=== PATIENT | female | born 1955 | race Caucasian/White ===

== ENCOUNTER 2017-06-19 23:33 | Emergency (ER) | payer MEDICAID ==
[2017-06-19] MEDS ORDERED: methylPREDNISolone Sodium Succinate 125 MG/2 ML SDV IVPUSH ONE (23:40)
[2017-06-20 00:22] LABS: ANION GAP 11.7; CHLORIDE,CL 92 mmol/L (101-111); SODIUM,NA 128 mmol/L (135-145)
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
[2017-06-20 01:30] VITALS: BP 150/84
--- NOTE | 2017-06-22 09:03 | EKG ---
06/19/2017- ADDIS VALERIE REDDYDONNAANGELA - FINDINGS: A 12-lead EKG shows normal sinus rhythm with no significant ST elevation or ST depression. Nonspecific ST-T wave changes noted on lead V4, V5, and V6 with T-wave inversions possible left ventricular hypertrophy and nonspecific intraventricular conduction delay. [facility] /[id number]
== END 2017-06-20 01:25 | disposition home or self-care (01) ==
LOC: DL.ED 23:33
DX: J44.1 Chronic obstructive pulmonary disease with (acute) exacerbation (principal); I50.9 Heart failure, unspecified; E78.00 Pure hypercholesterolemia, unspecified; F17.210 Nicotine dependence, cigarettes, uncomplicated; Z88.5 Allergy status to narcotic agent; Z88.1 Allergy status to other antibiotic agents; Z79.82 Long term (current) use of aspirin; Z79.899 Other long term (current) drug therapy
CPT/HCPCS: 36415; 71045; 80053; 84484; 85025; 93005; 96374; 99285; J2930

== ENCOUNTER 2017-09-08 16:35 | Emergency (ER) | payer MEDICAID ==
[2017-09-08 16:26] VITALS: BP 128/92
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
[2017-09-08] MEDS ORDERED: Mineral Oil/Petrolatum/Phenylephrine/Shark Liver Oil Oint 57 GM Tube RECTAL ONE ×2 (17:30→18:01)
[2017-09-08] MEDS ORDERED: Lidocaine 2% Jelly 5 ML Tube TOP ONE (17:48)
[2017-09-08] MEDS ORDERED: Phenylephrine Supp ONE (18:01)
== END 2017-09-08 18:13 | disposition home or self-care (01) ==
LOC: DL.ED 16:35
DX: K64.4 Residual hemorrhoidal skin tags (principal); J44.9 Chronic obstructive pulmonary disease, unspecified; J45.909 Unspecified asthma, uncomplicated; E66.9 Obesity, unspecified; F17.210 Nicotine dependence, cigarettes, uncomplicated; Z85.038 Personal history of other malignant neoplasm of large intestine; Z88.5 Allergy status to narcotic agent; Z88.8 Allergy status to other drugs, medicaments and biological substances; Z79.82 Long term (current) use of aspirin; Z79.899 Other long term (current) drug therapy
CPT/HCPCS: 74018; 80305; 81003; 82272; 99284

== ENCOUNTER 2017-10-11 06:32 | Day surgery (SDC) | payer MEDICAID ==
[2017-10-11] MEDS ORDERED: Dextrose 5%-0.45% NaCl 1,000 ML IV SCH (06:55)
[2017-10-11] MEDS ORDERED: Midazolam 1 MG/ML 2 ML SDV ONE (08:24)
[2017-10-11] MEDS ORDERED: fentaNYL 100 MCG/2 ML SDV ONE (08:24)
[2017-10-11] MEDS ORDERED: fentaNYL 100 MCG/2 ML SDV IV ONE ×2 (08:27→08:28)
[2017-10-11] MEDS ORDERED: Midazolam 1 MG/ML 2 ML SDV IV ONE ×3 (08:29→08:32)
--- NOTE | 2017-10-11 09:56 | OR ---
DATE: 10/11/2017 PROCEDURES PERFORMED: Total colonoscopy, NBI, and multiple cold snare polypectomies. INSTRUMENT USED: CF-H180AL Olympus videocolonoscope. PREMEDICATIONS: Fentanyl 100 mcg intravenous and Versed 2.5 mg intravenous. Nasal O2 cannula. The procedure was done under pulse oximetry, BP recording, and potline monitor. INDICATIONS: The patient with previous sigmoid colon cancer resection with recent rectal bleeding and FIT-positive stools. Colonoscopic examination is done for detection of any polypoid lesions and removal, endoscopic hemostasis therapy if needed. DESCRIPTION OF PROCEDURE: Initial rectal exam showed external hemorrhoidal tags. Rigid anoscopy showed small internal hemorrhoids without bleeding from them. The colonoscope was passed with ease. Scattered diverticula were noted in the distal left colon along with surgical deformity. The examination was less than adequate due to the presence of large amount of fecal material that had to be aspirated. The scope was passed with ease up to the ileocecal area, photographs were taken of the cecum showing superficial sessile benign-appearing 1 cm sized polyps, 2 in number, NBI views were taken, photographs were obtained, piecemeal polypectomies were done, the tissues were retrieved and sent for histopathology, photographs were taken of the polypectomy sites. No stricture. No vascular ectasia. No large isolated ulcerations seen. No evidence of diffuse inflammatory bowel disease in the form of friability, contact bleeding, or ulcerations. Pigmentation was noted in the colon consistent with melanosis coli. Probing the proximal sides of folds and flexures, using adequate distention and clearing of the stool material, withdrawal of the scope was made. In the proximal transverse colon, a 3 mm sized benign-appearing polyp was noted, cold snare polypectomy was done, the tissue was retrieved and sent for histopathology. No bleeding was noted from any of the visualized areas at the completion of the examination. IMPRESSION: 1. External and internal hemorrhoids. 2. Melanosis coli. 3. Diverticulosis. 4. Colonic polyps. The patient tolerated the procedure well. [facility] /[id number]
[2017-10-11 10:53] VITALS: BP 145/70
== END 2017-10-11 11:05 | disposition home or self-care (01) ==
LOC: DL.ENDO 06:32
PROVIDERS: ATTEND Internal Medicine Gastroenterology
DX: K62.5 Hemorrhage of anus and rectum (principal); R19.5 Other fecal abnormalities; D12.3 Benign neoplasm of transverse colon; D12.0 Benign neoplasm of cecum; K57.30 Diverticulosis of large intestine without perforation or abscess without bleeding; K64.8 Other hemorrhoids; K64.4 Residual hemorrhoidal skin tags; K63.89 Other specified diseases of intestine; I11.0 Hypertensive heart disease with heart failure; I50.9 Heart failure, unspecified; E66.09 Other obesity due to excess calories; F17.200 Nicotine dependence, unspecified, uncomplicated; E78.5 Hyperlipidemia, unspecified; I25.10 Atherosclerotic heart disease of native coronary artery without angina pectoris; G47.33 Obstructive sleep apnea (adult) (pediatric); Z85.038 Personal history of other malignant neoplasm of large intestine; Z88.5 Allergy status to narcotic agent; Z88.1 Allergy status to other antibiotic agents; Z90.49 Acquired absence of other specified parts of digestive tract; Z79.899 Other long term (current) drug therapy; Z91.048 Other nonmedicinal substance allergy status
CPT/HCPCS: J2250; J3010; J7042

== ENCOUNTER 2017-11-01 06:37 | Day surgery (SDC) | payer MEDICAID ==
[2017-11-01] MEDS ORDERED: Midazolam 1 MG/ML 2 ML SDV IV ONE (06:38)
[2017-11-01] MEDS ORDERED: Ondansetron 4 MG/2 ML SDV IV ONE (06:38)
[2017-11-01] MEDS ORDERED: Lidocaine 1% 30 ML SDV INJECT ONE ×4 (06:38→09:30)
[2017-11-01] MEDS ORDERED: Propofol 1,000 MG/100 ML SDV IV ONE (06:38)
[2017-11-01] MEDS ORDERED: fentaNYL 100 MCG/2 ML SDV IV ONE (06:38)
[2017-11-01] MEDS ORDERED: Bupivacaine 0.5% 30 ML SDV INJECT ONE ×4 (06:38→09:30)
[2017-11-01] MEDS ORDERED: Ketorolac 30 MG/ML SDV IVPUSH ONE (06:38)
[2017-11-01] MEDS ORDERED: Bupivacaine 0.5% 30 ML SDV ONE (07:05)
[2017-11-01] MEDS ORDERED: Lidocaine 1% 30 ML SDV ONE (07:05)
[2017-11-01] MEDS ORDERED: Sodium Chloride 0.9% 10 ML Syringe FLUSH PRN ×2 (07:51)
[2017-11-01] MEDS ORDERED: ceFAZolin 2 GM in Premix Bag 1 BAG IV ONE (07:52)
[2017-11-01] MEDS ORDERED: Lactated Ringers 1,000 ML IV SCH (08:00)
[2017-11-01] MEDS ORDERED: Acetaminophen/oxyCODONE 325-5 MG Tab PO PRN (10:08)
[2017-11-01] MEDS ORDERED: Albuterol/Ipratropium 3.0-0.5 MG/3 ML Neb Soln NEB ONE (10:17)
[2017-11-01] MEDS ORDERED: Albuterol 0.083% 2.5 MG/3 ML Neb Soln ONE (10:26)
[2017-11-01 11:15] VITALS: BP 135/71
--- NOTE | 2017-11-01 11:48 | PCM.OPNOTE ---
- General Post-Op/Procedure Note Date of Surgery/Procedure: 11/01/17 Operative Procedure(s): left foot 2nd and 3rd hammertoe corrections with PIPJ arthrodesis, extensor tendon lengthening digits 2,3,4. Plantar chondylectomy metatarsal 3. Flexor tenotomy digit 4. Pre Op Diagnosis: Left foot painful hammertoes digits 2,3,4. 3rd metatarsalgia with painful callus plantar met head. Post-Op Diagnosis: svetlana Anesthesia Technique: Local, MAC Primary Surgeon: Maya Melvin Anesthesia Provider: Jean Blandon EBL in mLs: 5 Complications: none Condition: Good Free Text/Narrative:: Pt tolerated procedure well and was transported to recovery with vascular status intact to left foot. smart toe implats used on digits 2 and 3. Well padded compression dressing applied.
--- NOTE | 2017-11-01 19:39 | OR ---
DATE: 11/01/2017 PREOPERATIVE DIAGNOSES: 1. Left foot third metatarsalgia with painful callus. 2. Left foot painful hammertoes; digits 2, 3, and 4. POSTOPERATIVE DIAGNOSES: 1. Left foot third metatarsalgia with painful callus. 2. Left foot painful hammertoes; digits 2, 3, and 4. PROCEDURES PERFORMED: 1. Left foot third metatarsal plantar condylectomy. 2. Left foot second and third digit hammertoe correction with proximal interphalangeal joint arthrodesis. 3. Fourth digit flexor tenotomy. 4. Left foot extensor tendon lengthening; digits 2, 3, and 4. ANESTHESIA: Local MAC with preoperative local block of 10 mL 1:1 mixture of 1% lidocaine plain and 0.5% Marcaine plain. TOURNIQUET TIME: Pneumatic ankle tourniquet, 81 minutes. ESTIMATED BLOOD LOSS: Minimal. SPECIMEN: None. COMPLICATIONS: None. INDICATIONS: Elsa is a 62-year-old female who presents with left foot pain. She has a painful callus that is underneath the ball of her foot; this grows back very quickly for her, and I have been doing callus trimming for her every month. She would like it taken care of surgically at this point as she is tired of dealing with it. She also does have painful hammertoes of digits 2 and 3 on the left foot, and also, the fourth digit is becoming very painful for her. This seems to be a newer issue for her with the toes now rubbing on her shoes and becoming very painful. She does live at the [facility]. X-rays of the left foot reveal a healed second metatarsal with screw intact; hammertoes present to digits 2, 3, and 4; and on the lateral view, it does appear that the third metatarsal is prominent more plantarly. No signs of fracture. The patient voiced good understanding of the proposed procedure and possible complications and elects to have surgery at this time. We did discuss the possibility that we could create a transfer lesion to a different area of the foot. She understands and agrees to this procedure. DESCRIPTION OF PROCEDURE: The patient was taken to the operating room lying in supine position. After adequate anesthesia induction as described above, the left foot was prepped and draped in the usual sterile fashion. The pneumatic ankle tourniquet was inflated to 125 mmHg. Attention was then directed to the second and third digits where a curvilinear incision was made overlying the proximal interphalangeal joint and carrying it down to the metatarsophalangeal joint area. Sharp and blunt dissection was performed down to the level of the extensor tendon on both areas. A blunt dissection was performed first down to the level of the third metatarsophalangeal joint, and the capsule was incised, and the metatarsal head was exposed. A prominent plantar condyle was noted, and a sagittal saw was used to resect this area. A bone rasp was also used to ensure no remaining plantar prominence. Attention was then directed to the proximal interphalangeal joint of the second and third digits. A tenotomy- capsulotomy was made at the proximal interphalangeal joint, and the head of the proximal phalanx was exposed on both the second and third digits. A sagittal saw was used to resect the head of the proximal phalanx on both digits. The instruments from the Smart Toe set were then used to remove the cartilage from the base of the intermediate phalanx of both toes. A Smart Toe measuring 19 was then placed across the proximal interphalangeal joint of the second digit, and it was noted to have good compression at the fusion site with good straight rectus alignment. The same was done at the third interphalangeal joint using the size 16 for this toe, and it was also noted to have good compression at the proximal interphalangeal joint. Both toes were noted to be in a rectus alignment; however, they did still have some tightness at the extensor tendons especially with simulated weightbearing, and they were elevated off the ground, so I did do an extensor tendon lengthening on both the second and third digits at this time. The digits were then noted to be in rectus alignment. Attention was directed then to the fourth digit where a small plantar incision was made at the sulcus area of the fourth toe. A flexor tenotomy was then performed, and the toe was noted to be in a straight rectus alignment. All areas were then irrigated with copious amounts of sterile saline. The tendon closure was completed with 3-0 Vicryl, and skin closure was completed with 4-0 nylon. The area was then dressed with Xeroform to the incision sites, fluffs, Webril, and an Murray wrap. Fluoroscopy was used throughout this procedure to verify proper positioning of the implants as well as compression at the arthrodesis sites. The patient tolerated the procedure well and was transported to recovery with vital signs stable and vascular status intact as noted by immediate hyperemia upon deflation of the ankle tourniquet. She was then given postoperative care instructions. She lives in a care home and will be using a walker for nonweightbearing. She was then discharged to the care home upon hospital discharge requirements. [facility] /[id number]
== END 2017-11-01 11:05 ==
LOC: DL.SDS 06:37
PROVIDERS: ATTEND Podiatrist
DX: M25.775 Osteophyte, left foot (principal); M20.42 Other hammer toe(s) (acquired), left foot; J44.9 Chronic obstructive pulmonary disease, unspecified; F17.200 Nicotine dependence, unspecified, uncomplicated; F25.9 Schizoaffective disorder, unspecified; K59.09 Other constipation; Z88.1 Allergy status to other antibiotic agents; Z88.5 Allergy status to narcotic agent; Z91.048 Other nonmedicinal substance allergy status
CPT/HCPCS: 01480; 28285; 28899; 94640; J0690; J1885; J2250; J2405; J2704; J3010; J7120; J7620; C1776

== ENCOUNTER 2018-02-16 03:21 | Emergency (ER) | payer MEDICAID ==
[2018-02-16] MEDS ORDERED: Ondansetron 4 MG/2 ML SDV IV ONE (03:30)
[2018-02-16] MEDS ORDERED: methylPREDNISolone Sodium Succinate 125 MG/2 ML SDV IVPUSH ONE (03:30)
--- NOTE | 2018-02-16 03:32 | EDM.PDOC ---
ED HPI GENERAL MEDICAL PROBLEM - General Chief Complaint: Respiratory Problem Stated Complaint: AMBULANCE-DIFFICULTY BREATHING Time Seen by Provider: 02/16/18 03:29 Source of Information: Reports: Patient, EMS History Limitations: Reports: No Limitations - History of Present Illness INITIAL COMMENTS - FREE TEXT/NARRATIVE: states has h/o COPD been using neb at home for SOB past 2 days not getting better, worse tonight chest felt heavy and hard to breath. Chest Pain Score (Numeric/FACES): 6 - Related Data Allergies Allergy/AdvReac Type Severity Reaction Status Date / Time codeine Allergy Hives Verified 02/16/18 03:27 doxycycline Allergy Cannot Verified 02/16/18 03:27 Remember iodine Allergy Other Verified 02/16/18 03:27 Home Meds: Home Meds Acetaminophen [Tylenol] 650 mg PO BID 09/23/14 [History] Aspirin [Ecotrin] 81 mg PO DAILY 09/23/14 [History] Fluticasone Propionate [Flonase] 2 sprays NASBOTH DAILY 09/23/14 [History] Fluticasone/Salmeterol [Advair 500-50] 1 puff INH BID 09/23/14 [History] OLANZapine [ZyPREXA] 15 mg PO BEDTIME 09/23/14 [History] Polyethylene Glycol 3350 [MiraLAX] 17 gm PO DAILY 09/23/14 [History] Cholecalciferol (Vitamin D3) [Vitamin D3] 1,000 units PO DAILY 06/23/15 [History ] atorvaSTATin [Lipitor] 20 mg PO BEDTIME 06/23/15 [History] Estradiol [Estrace] 0.5 mg PO DAILY 03/28/16 [History] Methylcellulose [Citrucel] 1 tbsp PO DAILY 03/28/16 [History] Albuterol/Ipratropium [DuoNeb 3.0-0.5 MG/3 ML] 3 ml NEB BID 03/29/16 [History] Multivitamin with Minerals [Multiple Vitamin] 1 tab PO DAILY 03/29/16 [History] OLANZapine [Zyprexa] 10 mg PO DAILY 03/29/16 [History] Lactulose 15 ml PO DAILY 09/08/17 [History] Sennosides/Docusate Sodium [Senna S Tablet] 2 tab PO BID 09/08/17 [History] guaiFENesin/Dextromethorphan [Mucinex DM ER 1,200-60 MG] 1 tab PO BID 09/08/17 [ History] Albuterol [Proventil HFA] 2 puff INH QID PRN 11/01/17 [History] Past Medical History HEENT History: Reports: Impaired Vision Other HEENT History: WEARS READING GLASSES WHEN NEEDED, allergic rhinitis Cardiovascular History: Reports: CAD, Heart Failure, Heart Murmur, High Cholesterol, Hypertension, ID Respiratory History: Reports: Asthma, COPD, Sleep Apnea, Other (See Below) Other Respiratory History: PATIENT DENIES SLEEP APNEA SHE STATES THAT SHE DOES NOT HAVE APNEA SINCE SHE LOST WEIGHT Gastrointestinal History: Reports: Chronic Constipation, Colon Polyp, GERD Genitourinary History: Reports: UTI, Recurrent Other Genitourinary History: SCAR TISSUE IN BLADDER - HAD SCAN RECENTLY - TISSUE IS BENIGN ARCHITECTURE FACULTY MEMBER History: Reports: Other ARCHITECTURE FACULTY MEMBER History: UTERINE CANCER; VAGINITIS - YEAST INFECTIONS Musculoskeletal History: Reports: Arthritis, Back Pain, Chronic Other Musculoskeletal History: 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; CHRONIC PAIN TO LOWER BACK TO TAIL BONE Neurological History: Reports: Migraines Psychiatric History: Reports: Other (See Below) Other Psychiatric History: documented personality disorder Endocrine/Metabolic History: Reports: Obesity/BMI 30+ Hematologic History: Reports: None Immunologic History: Reports: None Oncologic (Cancer) History: Reports: Colon, Uterine, Other (See Below) Other Oncologic History: THROAT CANCER Dermatologic History: Reports: Other (See Below) Other Dermatologic History: DRY SKIN D/T ALLERGIES - Infectious Disease History Infectious Disease History: Reports: Chicken Pox, Measles, Mumps - Past Surgical History Head Surgeries/Procedures: Reports: None HEENT Surgical History: Reports: Adenoidectomy, Tonsillectomy Other HEENT Surgeries/Procedures: THROAT CA WITH SURGICAL REMOVAL OF CA TISSUE Cardiovascular Surgical History: Reports: None, Other (See Below) Other Cardiovascular Surgeries/Procedures: CARDIAC CATHERIZATION X3 Respiratory Surgical History: Reports: None GI Surgical History: Reports: Colon, Colonoscopy, EGD Other GI Surgeries/Procedures: COLECTOMY - 2001; ADENOMATOUS POLYP OF COLON; COLON CANCER Female Surgical History: Reports: Section, Hysterectomy Endocrine Surgical History: Reports: None Neurological Surgical History: Reports: None Musculoskeletal Surgical History: Reports: None Oncologic Surgical History: Reports: Other (See Below) Other Oncologic Surgeries/Procedures: COLECTOMY; THROAT SURGERY - 2004 Dermatological Surgical History: Reports: None Social & Family History - Family History Family Medical History: Noncontributory - Caffeine Use Caffeine Use: Reports: Coffee Caffeine Use Comment: 6 CUPS DAILY - Sexual History Sexual History: Reports: None - Living Situation & Occupation Living situation: Reports: Assisted Living Occupation: Disabled ED ROS GENERAL - Review of Systems Review Of Systems: ROS reveals no pertinent complaints other than HPI. ED EXAM, GENERAL - Physical Exam Exam: See Below Exam Limited By: No Limitations General Appearance: Alert, WD/WN, Anxious, Mild Distress, Other (sob) Ears: Hearing Grossly Normal Throat/Mouth: Normal Voice, No Airway Compromise Head: Atraumatic Neck: Non-Tender, Full Range of Motion Respiratory/Chest: Decreased Breath Sounds, Rales, Rhonchi, Wheezing, Accessory Muscle Use Cardiovascular: Regular Rate, Rhythm GI/Abdominal: Soft, Non-Tender Neurological: Alert, Oriented, Normal Cognition, No Motor/Sensory Deficits Psychiatric: Anxious, Tearful Skin Exam: Warm, Dry, Normal Color Lymphatic: No Adenopathy Course - Vital Signs Last Recorded V/S: Last Vital Signs Temp 36.8 C 02/16/18 03:27 Pulse 88 02/16/18 04:33 Resp 20 02/16/18 04:33 BP 119/62 02/16/18 04:33 Pulse Ox 91 L 02/16/18 04:33 - Orders/Labs/Meds Orders: Active Orders 24 hr Category Date Time Status EKG Documentation Completion [RC] STAT Care 02/16/18 03:28 Active Chest 1V Frontal [CR] Urgent Exams 02/16/18 03:28 Ordered Sodium Chloride 0.9% [Normal Saline] 1,000 ml Med 02/16/18 04:30 Ordered IV ASDIRECTED Medication Orders Sodium Chloride (Normal Saline) 1,000 mls @ 250 mls/hr IV ASDIRECTED JUANCHO Labs: Laboratory Tests 02/16/18 02/16/18 02/16/18 Range/Units 03:31 03:31 03:31 WBC 4.5 L (5.0-10.0) 10^3/uL RBC 4.91 (4.2-5.4) 10^6/uL Hgb 14.7 (12.0-16.0) g/dL Hct 41.0 (37.0-47.0) % MCV 83.5 (80-100) fL MCH 29.9 (27.0-34.0) pg MCHC 35.9 H (33.0-35.0) g/dL Plt Count 195 (150-450) 10^3/uL Neut % (Auto) 67.9 (42.2-75.2) % Lymph % (Auto) 21.9 (20.5-50.1) % [place] % (Auto) 7.8 (2-8) % Eos % (Auto) 2.2 (1.0-3.0) % Baso % (Auto) 0.2 (0.0-1.0) % Sodium 125 L (135-145) mmol/L Potassium 3.7 (3.6-5.0) mmol/L Chloride 91 L (101-111) mmol/L Carbon Dioxide 27.0 (21.0-31.0) mmol/L Anion Gap 10.7 BUN 5 L (7-18) mg/dL Creatinine 0.7 (0.6-1.3) mg/dL Est Cr Clr Drug Dosing 78.95 mL/min Estimated GFR (MDRD) > 60 BUN/Creatinine Ratio 7.14 Glucose 91 (74-105) mg/dL Lactic Acid 0.9 (0.5-2.2) mmol/L Calcium 8.4 (8.4-10.2) mg/dl Total Bilirubin 0.5 (0.2-1.0) mg/dL AST 19 (10-42) IU/L ALT 17 (10-60) IU/L Alkaline Phosphatase 76 (42-121) IU/L Troponin I 0.03 H* (0.00-0.02) ng/ml Total Protein 6.3 L (6.7-8.2) g/dl Albumin 3.0 L (3.2-5.5) g/dl Globulin 3.3 Albumin/Globulin Ratio 0.91 Meds: Medications Generic Name Dose Route Start Last Admin Trade Name Freq PRN Reason Stop Dose Admin Sodium Chloride 1,000 mls @ 250 mls/hr 02/16/18 04:30 Normal Saline IV ASDIRECTED JUANCHO Discontinued Medications Generic Name Dose Route Start Last Admin Trade Name Freq PRN Reason Stop Dose Admin Methylprednisolone Sodium Succinate 125 mg 02/16/18 03:30 02/16/18 03:50 Solu-Medrol IVPUSH 02/16/18 03:31 125 mg ONETIME ONE Administration Nitroglycerin 0.4 mg 02/16/18 04:09 02/16/18 04:14 Nitrostat SL 02/16/18 04:10 0.4 mg ONETIME ONE Administration Ondansetron HCl 4 mg 02/16/18 03:30 02/16/18 03:47 Zofran IV 02/16/18 03:31 4 mg ONETIME ONE Administration Promethazine HCl/Codeine 5 ml 02/16/18 04:23 Phenergan With Codeine PO 02/16/18 04:24 ONETIME ONE - Re-Assessments/Exams Free Text/Narrative Re-Assessment/Exam: 02/16/18 04:24 re-exam; s/p NTG = much better except for her hacking cough that hurts her chest everytime she coughs. states she is not allergic to codeine and doesn't know why it is on her chart. she has taken it before without problems. 02/16/18 04:[address] Moncada who kindly accepted pt. Departure - Departure Time of Disposition: 04:37 Disposition: DC/[facility]fer to [facility] Condition: Fair Clinical Impression: Elevated troponin, COPD exacerbation, Hyponatremia Chest pain Qualifiers: Chest pain type: chest pain due to myocardial ischemia Ischemic chest pain type : other angina pectoris type Qualified Code(s): I20.8 - Other forms of angina pectoris - Discharge Information Forms: Interfacility Transfer EMTALA - My Orders Last 24 Hours: My Active Orders 02/16/18 03:28 EKG Documentation Completion [RC] STAT Chest 1V Frontal [CR] Urgent 02/16/18 04:30 Sodium Chloride 0.9% [Normal Saline] 1,000 ml IV ASDIRECTED - Assessment/Plan Last 24 Hours: My Active Orders 02/16/18 03:28 EKG Documentation Completion [RC] STAT Chest 1V Frontal [CR] Urgent 02/16/18 04:30 Sodium Chloride 0.9% [Normal Saline] 1,000 ml IV ASDIRECTED
[2018-02-16 04:04] LABS: ANION GAP 10.7; CHLORIDE,CL 91 mmol/L (101-111); SODIUM,NA 125 mmol/L (135-145)
[2018-02-16] MEDS ORDERED: Nitroglycerin 0.4 MG Tab.SL SL ONE (04:09)
[2018-02-16] MEDS ORDERED: Codeine/Promethazine 10-6.25 MG/5 ML Syrup 5 ML UD Cup PO ONE (04:23)
[2018-02-16] MEDS ORDERED: Sodium Chloride 0.9% 1,000 ML IV SCH (04:30)
[2018-02-16 04:34] VITALS: BP 119/62
== END 2018-02-16 05:30 ==
LOC: DL.ED 03:21
DX: I20.8 Other forms of angina pectoris (principal); J44.1 Chronic obstructive pulmonary disease with (acute) exacerbation; R79.89 Other specified abnormal findings of blood chemistry; E87.1 Hypo-osmolality and hyponatremia; I11.0 Hypertensive heart disease with heart failure; I50.9 Heart failure, unspecified; Z79.899 Other long term (current) drug therapy; Z79.82 Long term (current) use of aspirin; Z88.5 Allergy status to narcotic agent; Z88.8 Allergy status to other drugs, medicaments and biological substances
CPT/HCPCS: 36415; 71045; 80053; 83605; 84484; 85025; 93005; 96361; 96374; 96375; 99285; A9270; J2405; J2930; J7030

== ENCOUNTER 2019-02-27 04:38 | Emergency (ER) | payer MEDICARE, MEDICAID ==
[2019-02-27 06:02] LABS: ANION GAP 14.6; CHLORIDE,CL 84 mmol/L (101-111); SODIUM,NA 120 mmol/L (135-145)
--- NOTE | 2019-02-27 06:02 | EDM.PDOCBH ---
<AbhilashRamila Lee - Last Filed: 02/27/19 06:39> ED HPI GENERAL MEDICAL PROBLEM - General Chief Complaint: Behavioral/Psych Stated Complaint: PV-SUICIDAL Time Seen by Provider: 02/27/19 04:40 Source of Information: Reports: Patient History Limitations: Reports: No Limitations - History of Present Illness INITIAL COMMENTS - FREE TEXT/NARRATIVE: ED via [facility] from [facility] with concern of suicidal ideations. Patient reports not feeling safe at facility as staff make fun of her and have been not nice to other residents, finds it difficult to continue to live with old people. Feeling sad from of friend's daughter in past month. States she wants all the hurt to end. Tearful. Admits prior attempt 30 years ago. No immediate plan . Patient cooperative. Onset: Today Bilateral Hip Pain Score (Numeric/FACES): 6 - Related Data Allergies Allergy/AdvReac Type Severity Reaction Status Date / Time amlodipine Allergy Swelling Verified 02/27/19 04:33 codeine Allergy Swelling Verified 02/27/19 04:33 doxycycline Allergy Hives Verified 02/27/19 04:33 iodine Allergy Cannot Verified 02/27/19 04:33 Remember Persimmons Allergy Severe Airway Uncoded 02/27/19 04:33 Tightness Home Meds: Home Meds Acetaminophen [Tylenol] 650 mg PO BID PRN 09/23/14 [History] Fluticasone Propionate [Flonase] 2 sprays NASBOTH DAILY 09/23/14 [History] OLANZapine [ZyPREXA] 20 mg PO BEDTIME 09/23/14 [History] Polyethylene Glycol 3350 [MiraLAX] 17 gm PO DAILY 09/23/14 [History] atorvaSTATin [Lipitor] 20 mg PO BEDTIME 06/23/15 [History] Estradiol [Estrace] 0.5 mg PO DAILY 03/28/16 [History] Methylcellulose [Citrucel] 15 ml PO DAILY 03/28/16 [History] Multivitamin with Minerals [Multiple Vitamin] 1 tab PO DAILY 03/29/16 [History] Sennosides/Docusate Sodium [Senna S Tablet] 2 tab PO BID 09/08/17 [History] guaiFENesin/Dextromethorphan [Mucinex DM ER 1,200-60 MG] 1 tab PO BID 09/08/17 [ History] Aspirin [Halfprin] 81 mg PO DAILY 05/08/18 [History] Cetirizine [ZyrTEC] 10 mg PO DAILY 05/08/18 [History] Cholecalciferol (Vitamin D3) [Vitamin D3] 1,000 units PO DAILY 05/08/18 [History ] Lisinopril 20 mg PO DAILY 05/08/18 [History] Magnesium Hydroxide [Milk of Magnesia] 30 ml PO DAILY PRN 05/08/18 [History] Ondansetron [Zofran] 4 mg PO Q6H PRN 05/08/18 [History] Pantoprazole Sodium [Protonix] 20 mg PO DAILY 05/08/18 [History] Albuterol Sulfate 2.5 mg IH Q6HR PRN 02/27/19 [History] Fluticasone/Vilanterol [Breo Ellipta 100-25 MCG Inhalation Kit] 1 each IH DAILY 02/27/19 [History] Hydrocortisone [Hydrocortisone 1% Crm] 28.4 gm TOP ASDIRECTED 02/27/19 [History] OLANZapine [Olanzapine] 10 mg PO DAILY 02/27/19 [History] diphenhydrAMINE [Benadryl] 50 mg PO Q6HR PRN 02/27/19 [History] Past Medical History HEENT History: Reports: Allergic Rhinitis, Impaired Vision Other HEENT History: WEARS READING GLASSES WHEN NEEDED, allergic rhinitis Cardiovascular History: Reports: CAD, Heart Failure, Heart Murmur, High Cholesterol, Hypertension, [place], Other (See Below) Other Cardiovascular History: ESSENTIAL HYPERTENSION Respiratory History: Reports: Asthma, COPD, Sleep Apnea, Other (See Below) Other Respiratory History: PATIENT DENIES SLEEP APNEA SHE STATES THAT SHE DOES NOT HAVE APNEA SINCE SHE LOST WEIGHT Gastrointestinal History: Reports: Chronic Constipation, Colon Polyp, Diverticulosis, GERD, Hemorrhoids, Other (See Below) Other Gastrointestinal History: COLON CA. 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 CHRONIC PAIN TO LOWER BACK TO TAIL BONE Neurological History: Reports: Migraines Psychiatric History: Reports: Other (See Below) Other Psychiatric History: documented personality disorder. SCHIZOAFFECTIVE DISORDER Endocrine/Metabolic History: Reports: Obesity/BMI 30+ Hematologic History: Reports: None Immunologic History: Reports: None Oncologic (Cancer) History: Reports: Colon, Uterine, Other (See Below) Other Oncologic History: THROAT CANCER Dermatologic History: Reports: Other (See Below) Other Dermatologic History: DRY SKIN D/T ALLERGIES - Infectious Disease History Infectious Disease History: Reports: Chicken Pox, Measles, Mumps - Past Surgical History Head Surgeries/Procedures: Reports: None HEENT Surgical History: Reports: Adenoidectomy, Tonsillectomy Other HEENT Surgeries/Procedures: THROAT CA WITH SURGICAL REMOVAL OF CA TISSUE Cardiovascular Surgical History: Reports: None, Other (See Below) Other Cardiovascular Surgeries/Procedures: CARDIAC CATHERIZATION X3 Respiratory Surgical History: Reports: None GI Surgical History: Reports: Colon, Colonoscopy, EGD, Polypectomy Other GI Surgeries/Procedures: COLECTOMY - 2001; ADENOMATOUS POLYP OF COLON; COLON CANCER Female Surgical History: Reports: Section, Hysterectomy Endocrine Surgical History: Reports: None Neurological Surgical History: Reports: None Musculoskeletal Surgical History: Reports: None Oncologic Surgical History: Reports: Other (See Below) Other Oncologic Surgeries/Procedures: COLECTOMY; THROAT SURGERY - 2004 Dermatological Surgical History: Reports: None Social & Family History - Family History Family Medical History: Noncontributory - Tobacco Use Smoking Status *Q: Current Every Day Smoker Years of Tobacco use: 36 Packs/Tins Daily: 1 - Caffeine Use Caffeine Use: Reports: Coffee Caffeine Use Comment: 6 CUPS DAILY - SLOWLY GIVING IT UP - Recreational Drug Use Recreational Drug Use: No - Sexual History Sexual History: Reports: None - Living Situation & Occupation Living situation: Reports: Assisted Living Occupation: Disabled ED ROS GENERAL - Review of Systems Review Of Systems: See Below Constitutional: Denies: Fever, Chills, Malaise, Weakness HEENT: Reports: No Symptoms Respiratory: Reports: Cough (loose, worse in am) Cardiovascular: Reports: No Symptoms GI/Abdominal: Reports: Other (acid reflux) : Reports: No Symptoms Neurological: Reports: No Symptoms Psychiatric: Reports: Depression, Suicidal Ideation ED EXAM, BEHAVIORAL HEALTH - Physical Exam Exam: See Below Exam Limited By: No Limitations General Appearance: Alert, Mild Distress Eye Exam: Bilateral Eye: EOMI, PERRL Ears: Normal External Exam, Hearing Grossly Normal Nose: Normal Inspection Throat/Mouth: Normal Inspection Head: Atraumatic, Normocephalic Neck: Normal Inspection Respiratory/Chest: No Respiratory Distress, Wheezing (left anterior ,clears with cough) Cardiovascular: Regular Rate, Rhythm GI/Abdominal: Normal Bowel Sounds, Soft Neurological: Alert, Normal Cognition, Oriented x 3 Psychiatric: Alert, Normal Cognition, Tearful, Suicidal Thoughts, Other ( initially agreeable to meet with Crisis Counselor, With in few minutes time requesting him to leave room, Patient stated, "he just wanted me to take responsibility for stuff and I'm not doing it". Crisi counselor noting most of statement attention seeking type and does not feel patient is immediate risk to self or others. Counselor states that he will inform Edith, who manages her medications of patients ED visit and Facillity should be able to call and get patient seen within next week. ). No: Auditory Hallucinations, Visual Hallucinations Skin Exam: Warm, Dry, Intact, Normal color. No: Rash, Signs of self injury COURSE, BEHAVIORAL HEALTH COMP - Course Vital Signs: Last Vital Signs Temp 98.3 F 02/27/19 06:02 Pulse 72 02/27/19 06:02 Resp 16 02/27/19 06:02 BP 173/83 H 02/27/19 06:02 Pulse Ox 93 L 02/27/19 06:02 Orders, Labs, Meds: Laboratory Tests 02/27/19 02/27/19 02/27/19 Range/Units 05:26 05:26 05:34 WBC 4.9 L (5.0-10.0) 10^3/uL RBC 5.13 (4.2-5.4) 10^6/uL Hgb 15.3 (12.0-16.0) g/dL Hct 41.7 (37.0-47.0) % MCV 81.3 (80-100) fL MCH 29.8 (27.0-34.0) pg MCHC 36.7 H (33.0-35.0) g/dL Plt Count 197 (150-450) 10^3/uL Neut % (Auto) 75.7 H (42.2-75.2) % Lymph % (Auto) 15.5 L (20.5-50.1) % [place] % (Auto) 8.0 (2-8) % Eos % (Auto) 0.6 L (1.0-3.0) % Baso % (Auto) 0.2 (0.0-1.0) % Sodium (135-145) mmol/L Potassium (3.6-5.0) mmol/L Chloride (101-111) mmol/L Carbon Dioxide (21.0-31.0) mmol/L Anion Gap BUN (7-18) mg/dL Creatinine (0.6-1.3) mg/dL Est Cr Clr Drug Dosing mL/min Estimated GFR (MDRD) BUN/Creatinine Ratio Glucose (74-105) mg/dL Calcium (8.4-10.2) mg/dl Total Bilirubin (0.2-1.0) mg/dL AST (10-42) IU/L ALT (10-60) IU/L Alkaline Phosphatase (42-121) IU/L Total Protein (6.7-8.2) g/dl Albumin (3.2-5.5) g/dl Globulin Albumin/Globulin Ratio Urine Color Yellow (YELLOW) Urine Appearance Clear (CLEAR) Urine pH 7.0 (5.0-9.0) Ur Specific [place] 1.015 (1.005-1.030) Urine Protein Negative (NEGATIVE) Urine Glucose (UA) Negative (NEGATIVE) Urine Ketones Negative (NEGATIVE) Urine Occult Blood Negative (NEGATIVE) Urine Nitrite Negative (NEGATIVE) Urine Bilirubin Negative (NEGATIVE) Urine Urobilinogen 0.2 (0.2-1.0) mg/dL Ur Leukocyte Esterase Negative (NEGATIVE) Urine Opiates Screen Negative (NEGATIVE) Ur Oxycodone Screen Negative (NEGATIVE) Urine Methadone Screen Negative (NEGATIVE) Ur Barbiturates Screen Negative (NEGATIVE) U Tricyclic Antidepress Negative (NEGATIVE) Ur Phencyclidine Scrn Negative (NEGATIVE) Ur Amphetamine Screen Negative (NEGATIVE) U Methamphetamines Scrn Negative (NEGATIVE) Urine MDMA Screen Negative (NEGATIVE) U Benzodiazepines Scrn Negative (NEGATIVE) Urine Cocaine Screen Negative (NEGATIVE) U Marijuana (THC) Screen Negative (NEGATIVE) 02/27/19 Range/Units 05:34 WBC (5.0-10.0) 10^3/uL RBC (4.2-5.4) 10^6/uL Hgb (12.0-16.0) g/dL Hct (37.0-47.0) % MCV (80-100) fL MCH (27.0-34.0) pg MCHC (33.0-35.0) g/dL Plt Count (150-450) 10^3/uL Neut % (Auto) (42.2-75.2) % Lymph % (Auto) (20.5-50.1) % [place] % (Auto) (2-8) % Eos % (Auto) (1.0-3.0) % Baso % (Auto) (0.0-1.0) % Sodium 120 L (135-145) mmol/L Potassium 3.6 (3.6-5.0) mmol/L Chloride 84 L (101-111) mmol/L Carbon Dioxide 25.0 (21.0-31.0) mmol/L Anion Gap 14.6 BUN 5 L (7-18) mg/dL Creatinine 0.8 (0.6-1.3) mg/dL Est Cr Clr Drug Dosing 65.63 mL/min Estimated GFR (MDRD) > 60 BUN/Creatinine Ratio 6.25 Glucose 102 (74-105) mg/dL Calcium 8.2 L (8.4-10.2) mg/dl Total Bilirubin 0.6 (0.2-1.0) mg/dL AST 18 (10-42) IU/L ALT 17 (10-60) IU/L Alkaline Phosphatase 77 (42-121) IU/L Total Protein 6.4 L (6.7-8.2) g/dl Albumin 3.3 (3.2-5.5) g/dl Globulin 3.1 Albumin/Globulin Ratio 1.06 Urine Color (YELLOW) Urine Appearance (CLEAR) Urine pH (5.0-9.0) Ur Specific [place] (1.005-1.030) Urine Protein (NEGATIVE) Urine Glucose (UA) (NEGATIVE) Urine Ketones (NEGATIVE) Urine Occult Blood (NEGATIVE) Urine Nitrite (NEGATIVE) Urine Bilirubin (NEGATIVE) Urine Urobilinogen (0.2-1.0) mg/dL Ur Leukocyte Esterase (NEGATIVE) Urine Opiates Screen (NEGATIVE) Ur Oxycodone Screen (NEGATIVE) Urine Methadone Screen (NEGATIVE) Ur Barbiturates Screen (NEGATIVE) U Tricyclic Antidepress (NEGATIVE) Ur Phencyclidine Scrn (NEGATIVE) Ur Amphetamine Screen (NEGATIVE) U Methamphetamines Scrn (NEGATIVE) Urine MDMA Screen (NEGATIVE) U Benzodiazepines Scrn (NEGATIVE) Urine Cocaine Screen (NEGATIVE) U Marijuana (THC) Screen (NEGATIVE) Re-Assessment/Re-Exam: [facility] [place] [facility] Final Radiology Report Call: [phone] assistance Online chat: [email or web address] Name: VALERIE MANCINI Age: 63Years F Date: 02/27/2019 SSN: -- : 1955 Study: XR CHEST 1 VIEW FRONTAL Requesting Physician: RAMILA WILD Images: 1 Addl Studies: Provided Clinical History: Contrast: Contrast Medium: Contrast Amount: Contrast Method: CONFIDENTIALITY STATEMENT This report is intended only for use by the referring physician, and only in accordance with law. If you received this in error, call [phone]. Page 1 of 1 PROCEDURE INFORMATION: Exam: XR Chest, 1 View Exam date and time: 02/27/2019 5:58 AM Clinical history: 63 years old, female; Other: Productive cough; Patient HX: HX copd TECHNIQUE: Imaging protocol: XR of the chest Views: 1 view. COMPARISON: CR Chest 1V Frontal 02/16/2018 3:51 AM FINDINGS: Lungs: Subtle left upper lung mass new since prior study. The CT scan of the chest with IV contrast is suggested for better evaluation Pleural space: Unremarkable. No pleural effusion. No pneumothorax. Heart/Mediastinum: Unremarkable. No cardiomegaly. Bones/joints: Unremarkable. IMPRESSION: Subtle mass in the left upper lobe new since prior study. CT scan of the chest with IV contrast is suggested. Thank you for allowing us to participate in the care of your patient. Dictated and Authenticated by: Fidencio Galindo MD 02/27/2019 6:06 AM Central Time ([place] & Greg) Departure - Departure Disposition: Home, Self-Care 01 Condition: Good Clinical Impression: History of COPD, Cough, Hyponatremia, Mass of left lung, Schizo-affective schizophrenia, chronic condition, Thoughts of self harm - Discharge Information Instructions: Hyponatremia, [id number], Living With Depression Forms: ED Department Discharge Additional Instructions: Take your sodium tablets as prescribed. Follow up with Dr. Parker this week. <Tyree Arana - Last Filed: 02/27/19 08:12> COURSE, BEHAVIORAL HEALTH COMP - Course Medical Clearance: 02/27/19 08:08 Ramila HOLMAN report the pt was interviewed by the crisis clinical registered nurse and it was determined the pt in not currently considered to by a danger to herself or others and does not meet criteria for being detained. Discharge vs Psych Eval/Treatment:: 02/27/19 08:[address] Parker at 0800HRS. Plan to d/c pt back to her apartment with Dr. Parker agrees to arrange f/u care to address the depression, hyponatremia, and left upper lung mass in the outpt. setting. Departure - Departure Time of Disposition: 08:05 - Discharge Information *PRESCRIPTION DRUG MONITORING PROGRAM REVIEWED*: No *COPY OF PRESCRIPTION DRUG MONITORING REPORT IN PATIENT QUEENIE: No
[2019-02-27 06:03] VITALS: BP 173/83; PULSE 72
== END 2019-02-27 08:18 | disposition home or self-care (01) ==
LOC: DL.ED 04:38
DX: R45.851 Suicidal ideations (principal); F25.9 Schizoaffective disorder, unspecified; E87.1 Hypo-osmolality and hyponatremia; R91.8 Other nonspecific abnormal finding of lung field; J44.9 Chronic obstructive pulmonary disease, unspecified; I25.2 Old myocardial infarction; I11.0 Hypertensive heart disease with heart failure; I50.9 Heart failure, unspecified; K21.9 Gastro-esophageal reflux disease without esophagitis; F17.210 Nicotine dependence, cigarettes, uncomplicated; Z88.5 Allergy status to narcotic agent; Z91.048 Other nonmedicinal substance allergy status; Z88.8 Allergy status to other drugs, medicaments and biological substances; Z88.1 Allergy status to other antibiotic agents; Z79.899 Other long term (current) drug therapy; Z79.82 Long term (current) use of aspirin
CPT/HCPCS: 36415; 71045; 80053; 80305-QW; 81003; 85025; 99285-25

== ENCOUNTER 2019-02-27 23:26 | Observation (INO) | payer MEDICARE, MEDICAID ==
[2019-02-27] MEDS ORDERED: methylPREDNISolone Sodium Succinate 125 MG/2 ML SDV IVPUSH ONE (23:32)
[2019-02-27] MEDS ORDERED: EPINEPHrine 1 MG/1 ML Amp SUBCUT ONE (23:36)
[2019-02-28] MEDS ORDERED: Famotidine 20 MG/2 ML SDV IVPUSH ONE (00:03)
[2019-02-28] MEDS ORDERED: Ondansetron 4 MG/2 ML SDV IV ONE (00:12)
[2019-02-28] MEDS ORDERED: Ondansetron 4 MG/2 ML SDV ONE (00:12)
[2019-02-28 00:13] LABS: ANION GAP 10.9; CHLORIDE,CL 92 mmol/L (101-111); SODIUM,NA 126 mmol/L (135-145)
[2019-02-28] MEDS ORDERED: Acetaminophen 325 MG Tab PO PRN ×2 (01:18→09:15)
--- NOTE | 2019-02-28 01:21 | EDM.PDOC ---
ED HPI GENERAL MEDICAL PROBLEM - General Chief Complaint: Allergic Reaction Stated Complaint: AMBULANCE Time Seen by Provider: 02/27/19 23:30 Source of Information: Reports: Patient, EMS, RN History Limitations: Reports: No Limitations - History of Present Illness INITIAL COMMENTS - FREE TEXT/NARRATIVE: Ed via [facility] with report of waking with swollen tongue. Able to swallow 50mg oral benadryl prior to EMS transportfrom assisted living facility to hospital. Patient notes no new medications, no new foods. No prior episodes. No SOB. Oral/Mouth Pain Score (Numeric/FACES): 5 - Related Data Allergies Allergy/AdvReac Type Severity Reaction Status Date / Time amlodipine Allergy Swelling Verified 02/27/19 23:28 codeine Allergy Swelling Verified 02/27/19 23:28 doxycycline Allergy Hives Verified 02/27/19 23:28 iodine Allergy Cannot Verified 02/27/19 23:28 Remember Persimmons Allergy Severe Airway Uncoded 02/27/19 23:28 Tightness Home Meds: Home Meds Acetaminophen [Tylenol] 650 mg PO BID PRN 09/23/14 [History] Fluticasone Propionate [Flonase] 2 sprays NASBOTH DAILY 09/23/14 [History] OLANZapine [ZyPREXA] 20 mg PO BEDTIME 09/23/14 [History] Polyethylene Glycol 3350 [MiraLAX] 17 gm PO DAILY 09/23/14 [History] atorvaSTATin [Lipitor] 20 mg PO BEDTIME 06/23/15 [History] Estradiol [Estrace] 0.5 mg PO DAILY 03/28/16 [History] Methylcellulose [Citrucel] 15 ml PO DAILY 03/28/16 [History] Multivitamin with Minerals [Multiple Vitamin] 1 tab PO DAILY 03/29/16 [History] Sennosides/Docusate Sodium [Senna S Tablet] 2 tab PO BID 09/08/17 [History] guaiFENesin/Dextromethorphan [Mucinex DM ER 1,200-60 MG] 1 tab PO BID 09/08/17 [ History] Aspirin [Halfprin] 81 mg PO DAILY 05/08/18 [History] Cetirizine [ZyrTEC] 10 mg PO DAILY 05/08/18 [History] Cholecalciferol (Vitamin D3) [Vitamin D3] 1,000 units PO DAILY 05/08/18 [History ] Lisinopril 20 mg PO DAILY 05/08/18 [History] Magnesium Hydroxide [Milk of Magnesia] 30 ml PO DAILY PRN 05/08/18 [History] Ondansetron [Zofran] 4 mg PO Q6H PRN 05/08/18 [History] Pantoprazole Sodium [Protonix] 20 mg PO DAILY 05/08/18 [History] Albuterol Sulfate 2.5 mg IH Q6HR PRN 02/27/19 [History] Fluticasone/Vilanterol [Breo Ellipta 100-25 MCG Inhalation Kit] 1 each IH DAILY 02/27/19 [History] Hydrocortisone [Hydrocortisone 1% Crm] 28.4 gm TOP ASDIRECTED 02/27/19 [History] OLANZapine [Olanzapine] 10 mg PO DAILY 02/27/19 [History] diphenhydrAMINE [Benadryl] 50 mg PO Q6HR PRN 02/27/19 [History] Past Medical History HEENT History: Reports: Allergic Rhinitis, Impaired Vision Other HEENT History: WEARS READING GLASSES WHEN NEEDED, allergic rhinitis Cardiovascular History: Reports: CAD, Heart Failure, Heart Murmur, High Cholesterol, Hypertension, [place], Other (See Below) Other Cardiovascular History: ESSENTIAL HYPERTENSION Respiratory History: Reports: Asthma, COPD, Sleep Apnea, Other (See Below) Other Respiratory History: PATIENT DENIES SLEEP APNEA SHE STATES THAT SHE DOES NOT HAVE APNEA SINCE SHE LOST WEIGHT Gastrointestinal History: Reports: Chronic Constipation, Colon Polyp, Diverticulosis, GERD, Hemorrhoids, Other (See Below) Other Gastrointestinal History: COLON CA. 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 CHRONIC PAIN TO LOWER BACK TO TAIL BONE Neurological History: Reports: Migraines Psychiatric History: Reports: Other (See Below) Other Psychiatric History: documented personality disorder. SCHIZOAFFECTIVE DISORDER Endocrine/Metabolic History: Reports: Obesity/BMI 30+ Hematologic History: Reports: None Immunologic History: Reports: None Oncologic (Cancer) History: Reports: Colon, Uterine, Other (See Below) Other Oncologic History: THROAT CANCER Dermatologic History: Reports: Other (See Below) Other Dermatologic History: DRY SKIN D/T ALLERGIES - Infectious Disease History Infectious Disease History: Reports: Chicken Pox, Measles, Mumps - Past Surgical History Head Surgeries/Procedures: Reports: None HEENT Surgical History: Reports: Adenoidectomy, Tonsillectomy Other HEENT Surgeries/Procedures: THROAT CA WITH SURGICAL REMOVAL OF CA TISSUE Cardiovascular Surgical History: Reports: None, Other (See Below) Other Cardiovascular Surgeries/Procedures: CARDIAC CATHERIZATION X3 Respiratory Surgical History: Reports: None GI Surgical History: Reports: Colon, Colonoscopy, EGD, Polypectomy Other GI Surgeries/Procedures: COLECTOMY - 2001; ADENOMATOUS POLYP OF COLON; COLON CANCER Female Surgical History: Reports: Section, Hysterectomy Endocrine Surgical History: Reports: None Neurological Surgical History: Reports: None Musculoskeletal Surgical History: Reports: None Oncologic Surgical History: Reports: Other (See Below) Other Oncologic Surgeries/Procedures: COLECTOMY; THROAT SURGERY - 2004 Dermatological Surgical History: Reports: None Social & Family History - Family History Family Medical History: Noncontributory - Tobacco Use Smoking Status *Q: Light Tobacco Smoker Years of Tobacco use: 40 Packs/Tins Daily: 0.2 - Caffeine Use Caffeine Use: Reports: Coffee Caffeine Use Comment: 6 CUPS DAILY - SLOWLY GIVING IT UP - Recreational Drug Use Recreational Drug Use: No - Sexual History Sexual History: Reports: None - Living Situation & Occupation Living situation: Reports: Assisted Living Occupation: Disabled ED ROS ALLERGIC REACTION - Review of Systems Review Of Systems: See Below Constitutional: Denies: Fever, Chills HEENT: Reports: Other (tongue swollen) Respiratory: Reports: No Symptoms Cardiovascular: Reports: No Symptoms Endocrine: Reports: No Symptoms GI/Abdominal: Reports: No Symptoms : Reports: No Symptoms Musculoskeletal: Reports: No Symptoms Skin: Reports: No Symptoms Neurological: Reports: No Symptoms Psychiatric: Reports: Agitation, Anxiety, Depression, Suicidal Ideation ED EXAM GENERAL NO PERIP PULSE - Physical Exam Exam: See Below Exam Limited By: No Limitations General Appearance: Alert, Mild Distress, Obese. No: Anxious Eye Exam: Bilateral Eye: EOMI Ears: Normal External Exam, Hearing Grossly Normal Nose: Normal Inspection Throat/Mouth: Other (tongue swollen protruberantleft side slightly greater than right, ). No: Normal Inspection Head: Atraumatic, Normocephalic Neck: Normal Inspection, Full Range of Motion. No: Lymphadenopathy (L), Lymphadenopathy (R) Respiratory/Chest: No Respiratory Distress, Lungs Clear, Wheezing (wheezing bilaterally, no change from previous visit earlier this am.) Cardiovascular: Normal Peripheral Pulses, Regular Rate, Rhythm GI/Abdominal: Normal Bowel Sounds, Soft, Non-Tender Back Exam: Full Range of Motion Extremities: Normal Inspection Neurological: Alert, Oriented, Normal Cognition Psychiatric: Normal Affect Skin Exam: Warm, Dry, Intact, Normal Color. No: Rash Course - Vital Signs Last Recorded V/S: Last Vital Signs Temp 97.8 F 02/28/19 01:18 Pulse 70 02/28/19 01:18 Resp 16 02/28/19 01:18 BP 157/79 H 02/28/19 01:18 Pulse Ox 93 L 02/28/19 01:18 - Orders/Labs/Meds Orders: Medication Orders Acetaminophen (Tylenol) 650 mg PO Q4H PRN PRN Reason: Pain (mild 1-3 )/fever Diphenhydramine HCl (Benadryl) 25 mg PO TID PRN PRN Reason: swelling Last Admin: 02/28/19 01:49 Dose: 25 mg Sodium Chloride (Normal Saline) 1,000 mls @ 100 mls/hr IV ASDIRECTED JUANCHO Last Admin: 02/28/19 01:48 Dose: 100 mls/hr Labs: Laboratory Tests 02/27/19 Range/Units 23:31 Phosphorus 4.8 H (2.5-4.6) mg/dL Magnesium 1.7 L (1.8-2.5) mg/dL Meds: Medications Generic Name Dose Route Start Last Admin Trade Name Freq PRN Reason Stop Dose Admin Acetaminophen 650 mg 02/28/19 01:18 Tylenol PO Q4H PRN Pain (mild 1-3 )/fever Diphenhydramine HCl 25 mg 02/28/19 01:25 02/28/19 01:49 Benadryl PO 25 mg TID PRN Administration swelling Sodium Chloride 1,000 mls @ 100 mls/hr 02/28/19 01:30 02/28/19 01:48 Normal Saline IV 100 mls/hr ASDIRECTED JUANCHO Administration Discontinued Medications Generic Name Dose Route Start Last Admin Trade Name Freq PRN Reason Stop Dose Admin Epinephrine HCl 0.3 mg 02/27/19 23:36 02/27/19 23:43 Adrenalin SUBCUT 02/27/19 23:37 0.3 mg ONETIME ONE Administration Famotidine 20 mg 02/28/19 00:03 02/28/19 00:09 Pepcid IVPUSH 02/28/19 00:04 20 mg ONETIME ONE Administration Methylprednisolone Sodium Succinate 125 mg 02/27/19 23:32 02/27/19 23:40 Solu-Medrol IVPUSH 02/27/19 23:33 125 mg ONETIME ONE Administration Ondansetron HCl 4 mg 02/28/19 00:12 02/28/19 00:13 Zofran IV 02/28/19 00:13 4 mg ONETIME ONE Administration Ondansetron HCl Confirm 02/28/19 00:12 02/28/19 00:31 Zofran Administered 02/28/19 00:13 Not Given Dose 4 mg .ROUTE .STK-MED ONE Departure - Departure Time of Disposition: 01:24 Disposition: Refer to Observation Condition: Fair Clinical Impression: History of COPD, Hyponatremia Angioedema Qualifiers: Encounter type: initial encounter Qualified Code(s): T78.3XXA - Angioneurotic edema, initial encounter - Discharge Information
--- NOTE | 2019-02-28 01:29 | PCM.HP ---
H&P History of Present Illness - General Date of Service: 02/28/19 Admit Problem/Dx: Admission Diagnosis/Problem Admission Diagnosis/Problem Allergic reaction Source of Information: Patient History Limitations: Reports: No Limitations - History of Present Illness Initial Comments - Free Text/Narative: Elsa is 63 y/o F with PMH of HTN, HLD, COPD who was brought to the ED with swollen tongue. Patient reports waking up with her tongue swollen. She denies difficulty swallowing, rash, SOB. Patient is on ACEi for HTN but denies taking any new medication or eating unfamiliar food. She denies fever and chills. No previous episode. She said she took 50 mg of benadryl before coming to the ED. She denies cough, fever or chills. Onset of Symptoms: Reports: Today Duration of Symptoms: Reports: Hour(s): Quality: Reports: Other (swollen tongue ) Improves with: Reports: None Worsens with: Reports: None Associated Symptoms: Reports: No Other Symptoms Oral/Mouth Pain Score (Numeric/FACES): 5 - Related Data Allergies/Adverse Reactions: Allergies Allergy/AdvReac Type Severity Reaction Status Date / Time amlodipine Allergy Swelling Verified 02/27/19 23:28 codeine Allergy Swelling Verified 02/27/19 23:28 doxycycline Allergy Hives Verified 02/27/19 23:28 iodine Allergy Cannot Verified 02/27/19 23:28 Remember [place]ons Allergy Severe Airway Uncoded 02/27/19 23:28 Tightness Home Medications: Home Meds Acetaminophen [Tylenol] 650 mg PO BID PRN 09/23/14 [History] Fluticasone Propionate [Flonase] 2 sprays NASBOTH DAILY 09/23/14 [History] OLANZapine [ZyPREXA] 20 mg PO BEDTIME 09/23/14 [History] Polyethylene Glycol 3350 [MiraLAX] 17 gm PO DAILY 09/23/14 [History] atorvaSTATin [Lipitor] 20 mg PO BEDTIME 06/23/15 [History] Estradiol [Estrace] 0.5 mg PO DAILY 03/28/16 [History] Methylcellulose [Citrucel] 15 ml PO DAILY 03/28/16 [History] Multivitamin with Minerals [Multiple Vitamin] 1 tab PO DAILY 03/29/16 [History] Sennosides/Docusate Sodium [Senna S Tablet] 2 tab PO BID 09/08/17 [History] guaiFENesin/Dextromethorphan [Mucinex DM ER 1,200-60 MG] 1 tab PO BID 09/08/17 [ History] Aspirin [Halfprin] 81 mg PO DAILY 05/08/18 [History] Cetirizine [ZyrTEC] 10 mg PO DAILY 05/08/18 [History] Cholecalciferol (Vitamin D3) [Vitamin D3] 1,000 units PO DAILY 05/08/18 [History ] Lisinopril 20 mg PO DAILY 05/08/18 [History] Magnesium Hydroxide [Milk of Magnesia] 30 ml PO DAILY PRN 05/08/18 [History] Ondansetron [Zofran] 4 mg PO Q6H PRN 05/08/18 [History] Pantoprazole Sodium [Protonix] 20 mg PO DAILY 05/08/18 [History] Albuterol Sulfate 2.5 mg IH Q6HR PRN 02/27/19 [History] Fluticasone/Vilanterol [Breo Ellipta 100-25 MCG Inhalation Kit] 1 each IH DAILY 02/27/19 [History] Hydrocortisone [Hydrocortisone 1% Crm] 28.4 gm TOP ASDIRECTED 02/27/19 [History] OLANZapine [Olanzapine] 10 mg PO DAILY 02/27/19 [History] diphenhydrAMINE [Benadryl] 50 mg PO Q6HR PRN 02/27/19 [History] Past Medical History HEENT History: Reports: Allergic Rhinitis, Impaired Vision Other HEENT History: WEARS READING GLASSES WHEN NEEDED, allergic rhinitis Cardiovascular History: Reports: CAD, Heart Failure, Heart Murmur, High Cholesterol, Hypertension, [place], Other (See Below) Other Cardiovascular History: ESSENTIAL HYPERTENSION Respiratory History: Reports: Asthma, COPD, Sleep Apnea, Other (See Below) Other Respiratory History: PATIENT DENIES SLEEP APNEA SHE STATES THAT SHE DOES NOT HAVE APNEA SINCE SHE LOST WEIGHT Gastrointestinal History: Reports: Chronic Constipation, Colon Polyp, Diverticulosis, GERD, Hemorrhoids, Other (See Below) Other Gastrointestinal History: COLON CA. 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 CHRONIC PAIN TO LOWER BACK TO TAIL BONE Neurological History: Reports: Migraines Psychiatric History: Reports: Other (See Below) Other Psychiatric History: documented personality disorder. SCHIZOAFFECTIVE DISORDER Endocrine/Metabolic History: Reports: Obesity/BMI 30+ Hematologic History: Reports: None Immunologic History: Reports: None Oncologic (Cancer) History: Reports: Colon, Uterine, Other (See Below) Other Oncologic History: THROAT CANCER Dermatologic History: Reports: Other (See Below) Other Dermatologic History: DRY SKIN D/T ALLERGIES - Infectious Disease History Infectious Disease History: Reports: Chicken Pox, Measles, Mumps - Past Surgical History Head Surgeries/Procedures: Reports: None HEENT Surgical History: Reports: Adenoidectomy, Tonsillectomy Other HEENT Surgeries/Procedures: THROAT CA WITH SURGICAL REMOVAL OF CA TISSUE Cardiovascular Surgical History: Reports: None, Other (See Below) Other Cardiovascular Surgeries/Procedures: CARDIAC CATHERIZATION X3 Respiratory Surgical History: Reports: None GI Surgical History: Reports: Colon, Colonoscopy, EGD, Polypectomy Other GI Surgeries/Procedures: COLECTOMY - 2001; ADENOMATOUS POLYP OF COLON; COLON CANCER Female Surgical History: Reports: Section, Hysterectomy Endocrine Surgical History: Reports: None Neurological Surgical History: Reports: None Musculoskeletal Surgical History: Reports: None Oncologic Surgical History: Reports: Other (See Below) Other Oncologic Surgeries/Procedures: COLECTOMY; THROAT SURGERY - 2004 Dermatological Surgical History: Reports: None Social & Family History - Family History Family Medical History: Noncontributory - Tobacco Use Smoking Status *Q: Light Tobacco Smoker Years of Tobacco use: 40 Packs/Tins Daily: 0.2 - Caffeine Use Caffeine Use: Reports: Coffee Caffeine Use Comment: 6 CUPS DAILY - SLOWLY GIVING IT UP - Recreational Drug Use Recreational Drug Use: No - Sexual History Sexual History: Reports: None - Living Situation & Occupation Living situation: Reports: Assisted Living Occupation: Disabled H&P Review of Systems - Review of Systems: Review Of Systems: See Below (swollen tongue) General: Reports: No Symptoms HEENT: Reports: No Symptoms, Other (swollen tongue) Pulmonary: Reports: No Symptoms Cardiovascular: Reports: No Symptoms Gastrointestinal: Reports: No Symptoms Genitourinary: Reports: No Symptoms Musculoskeletal: Reports: No Symptoms Skin: Reports: No Symptoms Psychiatric: Reports: No Symptoms Neurological: Reports: No Symptoms Hematologic/Lymphatic: Reports: No Symptoms Immunologic: Reports: No Symptoms Exam - Exam Exam: See Below (swollen tongue) - Vital Signs Vital Signs: Last Vital Signs Temp 97.9 F 02/27/19 23:29 Pulse 66 02/27/19 23:44 Resp 16 02/27/19 23:44 BP 136/79 02/27/19 23:29 Pulse Ox 98 02/27/19 23:44 Weight: 192 lb - Exam Quality Assessment: DVT Prophylaxis General: Alert, Oriented, 4 HEENT: Conjunctiva Clear, EACs Clear, EOMI, Hearing Intact, Mucosa Moist & [place] , Nares Patent, Normal Nasal Septum, Posterior Pharynx Clear, TMs Clear, Other ( swollen tongue), PERRLA Neck: Supple, Trachea Midline, 2 Lungs: Clear to Auscultation, Normal Respiratory Effort Cardiovascular: Regular Rate, Regular Rhythm GI/Abdominal Exam: Normal Bowel Sounds, Soft, Non-Tender, No Organomegaly, No Distention, No Abnormal Bruit, No Mass, Pelvis Stable (Female) Exam: Normal External Exam, Normal Speculum Exam, Normal Bimanual Exam Rectal (Female) Exam: Normal Exam, Normal Rectal Tone Back Exam: Normal Inspection, Full Range of Motion, NT Extremities: Normal Inspection, Normal Range of Motion, Non-Tender, No Pedal Edema, Normal Capillary Refill Skin: Warm, Dry, Intact Neurological: Cranial Nerves Intact, Reflexes Equal Bilateral Neuro Extensive - Mental Status: Alert, Oriented x3, Normal Mood/Affect, Normal Cognition Neuro Extensive - Motor, Sensory, Reflexes: CN II-XII Intact, Normal Gait, Normal Reflexes Psychiatric: Alert, Normal Affect, Normal Mood - Patient Data Result Diagrams: 02/28/19 06:23 02/28/19 06:23 - Problem List (1) Angioedema SNOMED Code(s): 25140433 ICD Code: T78.3XXA - ANGIONEUROTIC EDEMA, INITIAL ENCOUNTER Status: Acute Current Visit: Yes Qualifiers: Encounter type: initial encounter Qualified Code(s): T78.3XXA - Angioneurotic edema, initial encounter (2) History of COPD SNOMED Code(s): 798790591 ICD Code: Z87.09 - PERSONAL HISTORY OF OTHER DISEASES OF THE RESPIRATORY SYSTEM Status: Acute Current Visit: Yes Problem List Initiated/Reviewed/Updated: Yes Orders Last 24hrs: Active Orders 24 hr Category Date Time Status Patient Status [ADT] Routine ADT 02/28/19 01:02 Active Ambulate [RC] ASDIRECTED Care 02/28/19 01:18 Ordered Antiembolic Devices [RC] .Routine Care 02/28/19 01:21 Ordered Intake and Output [RC] QSHIFT Care 02/28/19 01:19 Ordered Oxygen Therapy [RC] PRN Care 02/28/19 01:19 Ordered Pulse Oximetry [RC] PRN Care 02/28/19 01:19 Ordered VTE/DVT Education [RC] PER UNIT ROUTINE Care 02/28/19 01:21 Ordered Vital Signs [RC] Q4H Care 02/28/19 01:18 Ordered Regular Diet [DIET] Diet 02/28/19 Breakfast Ordered BASIC METABOLIC PANEL,BMP [CHEM] Routine Lab 02/28/19 01:23 Ordered CBC W/O DIFF,HEMOGRAM [HEME] Routine Lab 02/28/19 01:24 Ordered MAGNESIUM [CHEM] Routine Lab 02/28/19 01:23 Ordered PHOSPHORUS [CHEM] Routine Lab 02/28/19 01:23 Ordered Acetaminophen [Tylenol] Med 02/28/19 01:18 Ordered 650 mg PO Q4H PRN Sodium Chloride 0.9% [Normal Saline] 1,000 ml Med 02/28/19 01:30 Ordered IV ASDIRECTED diphenhydrAMINE [Benadryl] Med 02/28/19 01:25 Ordered 25 mg PO TID PRN DVT/VTE Prophylaxis Reflex [OM.PC] Routine Oth 02/28/19 01:18 Ordered Resuscitation Status Routine Resus Stat 02/28/19 01:18 Ordered Medication Orders Acetaminophen (Tylenol) 650 mg PO Q4H PRN PRN Reason: Pain (mild 1-3 )/fever Diphenhydramine HCl (Benadryl) 25 mg PO TID PRN PRN Reason: swelling Sodium Chloride (Normal Saline) 1,000 mls @ 100 mls/hr IV ASDIRECTED [facility] Assessment/Plan Comment:: Angioedema due to ACEi use -Patient presented to the ED with swollen tongue -Patient on Lisinopril for HTN -She is hemodynamically stable -admit to medical floor -monitor vitals -monitor respiratory status closely -Benadryl 50 mg q6h -Low thresh hold for ICU transfer #Hyponatremia- moderate -This appears chronic -Patient asymptomatic -monitor serum Na -Sodium tablet tid #Hypomagnesemia -Replete IV #Hyperphosphatemia -monitor #Leukopenia -follow up #COPD -Not in exacerbation -Continue home medication #HTN -BP witnin acceptable limits -Hold Lisinopril given angioedema -Monitor BP closely -Will start Norvasc if BP elevates #HLD -Continue Lipitor #Diet -Cardiac #Code -Full
[2019-02-28] MEDS: Sodium Chloride 0.9% 1,000 ML IV SCH ×2 (01:48→11:29)
[2019-02-28] MEDS: diphenhydrAMINE 25 MG Tab PO PRN ×2 (01:49→05:14)
[2019-02-28 07:07] LABS: ANION GAP 12.5; CHLORIDE,CL 91 mmol/L (101-111); SODIUM,NA 125 mmol/L (135-145)
[2019-02-28] MEDS ORDERED: diphenhydrAMINE 25 MG Tab PO PRN (08:31)
[2019-02-28] MEDS ORDERED: Ondansetron 4 MG Tab.DIS PO PRN (09:15)
[2019-02-28] MEDS ORDERED: Non-Formulary Medication 1 Each (Fluticasone/Vilanterol 1 EACH) IH SCH (09:30)
[2019-02-28] MEDS ORDERED: Magnesium Sulfate (4.06 MEQ/ML) 1 GM/2 ML SDV IM ONE (09:37)
[2019-02-28] MEDS ORDERED: Sodium Chloride 1 GM Tab PO SCH (10:00)
[2019-02-28] MEDS ORDERED: Magnesium Sulfate/Water 2 GM in Premix Bag 1 BAG IV ONE (10:00)
[2019-02-28] MEDS: OLANZapine 5 MG Tab PO SCH ×2 (10:15→20:38)
[2019-02-28] MEDS: Metoprolol Tartrate 50 MG Tab PO SCH ×2 (14:29→20:38)
--- NOTE | 2019-02-28 14:47 | PCM.PN ---
- General Info Date of Service: 02/28/19 Admission Dx/Problem (Free Text): Admission Diagnosis/Problem Admission Diagnosis/Problem Allergic reaction Subjective Update: Elsa is 63 y/o F with PMH of HTN, HLD, COPD who was brought to the ED with swollen tongue. She was admitted for angioedema. This morning she was seen and examined. Tongue swelling has resolved. patient feeling better. No complaint. No SOB. Functional Status: Reports: Pain Controlled - Review of Systems General: Reports: No Symptoms HEENT: Reports: No Symptoms Pulmonary: Reports: No Symptoms Cardiovascular: Reports: No Symptoms Gastrointestinal: Reports: No Symptoms Genitourinary: Reports: No Symptoms Musculoskeletal: Reports: No Symptoms Skin: Reports: No Symptoms Neurological: Reports: No Symptoms Psychiatric: Reports: No Symptoms - Patient Data Vitals - Most Recent: Last Vital Signs Temp 98.9 F 02/28/19 07:39 Pulse 96 02/28/19 14:29 Resp 18 02/28/19 12:00 BP 184/85 H 02/28/19 14:29 Pulse Ox 94 L 02/28/19 12:00 Weight - Most Recent: 192 lb I&O - Last 24 Hours: Intake & Output 02/27/19 02/28/19 02/28/19 22:59 06:59 14:59 Intake Total 100 2460 Output Total 600 850 Balance -500 1610 Lab Results Last 24 Hours: Laboratory Results - last 24 hr 02/27/19 02/28/19 02/28/19 Range/Units 23:31 06:23 06:23 WBC 2.8 L (5.0-10.0) 10^3/uL RBC 5.03 (4.2-5.4) 10^6/uL Hgb 14.9 (12.0-16.0) g/dL Hct 41.6 (37.0-47.0) % MCV 82.7 (80-100) fL MCH 29.6 (27.0-34.0) pg MCHC 35.8 H (33.0-35.0) g/dL Plt Count 198 (150-450) 10^3/uL Neut % (Auto) 92.3 H (42.2-75.2) % Lymph % (Auto) 6.3 L (20.5-50.1) % [place] % (Auto) 1.4 L (2-8) % Eos % (Auto) 0.0 L (1.0-3.0) % Baso % (Auto) 0.0 (0.0-1.0) % Sodium 125 L (135-145) mmol/L Potassium 4.5 (3.6-5.0) mmol/L Chloride 91 L (101-111) mmol/L Carbon Dioxide 26.0 (21.0-31.0) mmol/L Anion Gap 12.5 BUN 7 (7-18) mg/dL Creatinine 0.8 (0.6-1.3) mg/dL Est Cr Clr Drug Dosing 68.18 mL/min Estimated GFR (MDRD) > 60 Glucose 143 H (74-105) mg/dL Calcium 8.3 L (8.4-10.2) mg/dl Phosphorus 4.8 H (2.5-4.6) mg/dL Magnesium 1.7 L (1.8-2.5) mg/dL Med Orders - Current: Current Medications Acetaminophen (Tylenol) 650 mg PO BID PRN PRN Reason: Pain Albuterol (Proventil Neb Soln) 2.5 mg INH Q6HRRT PRN PRN Reason: Cough Aspirin (Halfprin) 81 mg PO DAILY [facility] Atorvastatin Calcium (Lipitor) 20 mg PO BEDTIME [facility] Diphenhydramine HCl (Benadryl) 25 mg PO Q6H PRN PRN Reason: swelling Fluticasone Propionate (Flonase) 0 gm NASBOTH DAILY [facility] Metoprolol Tartrate (Lopressor) 50 mg PO BID [facility] Last Admin: 02/28/19 14:29 Dose: 50 mg Non-Formulary Medication (Cetirizine [Zyrtec]) 10 mg PO DAILY [facility] Non-Formulary Medication (Estradiol [Estrace]) 0.5 mg PO DAILY [facility] Non-Formulary Medication (Fluticasone/Vilanterol) 1 each IH DAILY [facility] Non-Formulary Medication (Pantoprazole Sodium [Protonix]) 20 mg PO DAILY [facility] Olanzapine (Zyprexa) 20 mg PO BEDTIME [facility] Olanzapine (Zyprexa) 10 mg PO DAILY [facility] Last Admin: 02/28/19 10:15 Dose: 10 mg Ondansetron HCl (Zofran Odt) 4 mg PO Q6H PRN PRN Reason: Nausea Sodium Chloride (Sodium Chloride) 1 gm PO BID [facility] Last Admin: 02/28/19 11:24 Dose: 1 gm Discontinued Medications Acetaminophen (Tylenol) 650 mg PO Q4H PRN PRN Reason: Pain (mild 1-3 )/fever Last Admin: 02/28/19 14:33 Dose: 650 mg Diphenhydramine HCl (Benadryl) 25 mg PO TID PRN PRN Reason: swelling Last Admin: 02/28/19 05:14 Dose: 25 mg Epinephrine HCl (Adrenalin) 0.3 mg SUBCUT ONETIME ONE Stop: 02/27/19 23:37 Last Admin: 02/27/19 23:43 Dose: 0.3 mg Famotidine (Pepcid) 20 mg IVPUSH ONETIME ONE Stop: 02/28/19 00:04 Last Admin: 02/28/19 00:09 Dose: 20 mg Sodium Chloride (Normal Saline) 1,000 mls @ 100 mls/hr IV ASDIRECTED [facility] Last Admin: 02/28/19 11:29 Dose: 100 mls/hr Magnesium Sulfate 2 gm/ Premix 50 mls @ 25 mls/hr IV ONETIME ONE Stop: 02/28/19 11:59 Last Infusion: 02/28/19 11:54 Dose: 25 mls/hr Influenza Virus Vaccine (Pharmacy To Dose - Influenza Vaccine) 1 each IM ONETIME ONE Stop: 02/28/19 08:34 Influenza Virus Vaccine (Fluad 2498-2522 Syringe) 45 mcg IM .ONCE ONE Stop: 02/28/19 11:01 Last Admin: 02/28/19 10:15 Dose: 45 mcg Magnesium Sulfate (Magnesium Sulfate 50%) 1 gm IM ONETIME ONE Stop: 02/28/19 09:38 Last Admin: 02/28/19 13:40 Dose: Not Given Methylprednisolone Sodium Succinate (Solu-Medrol) 125 mg IVPUSH ONETIME ONE Stop: 02/27/19 23:33 Last Admin: 02/27/19 23:40 Dose: 125 mg Ondansetron HCl (Zofran) 4 mg IV ONETIME ONE Stop: 02/28/19 00:13 Last Admin: 02/28/19 00:13 Dose: 4 mg Ondansetron HCl (Zofran) Confirm Administered Dose 4 mg .ROUTE .STK-MED ONE Stop: 02/28/19 00:13 Last Admin: 02/28/19 00:31 Dose: Not Given - Exam General: Alert, Oriented HEENT: Pupils Equal, Pupils Reactive, EOMI, Mucous Membr. Moist/[place] Neck: Supple Lungs: Clear to Auscultation, Normal Respiratory Effort Cardiovascular: Regular Rate, Regular Rhythm GI/Abdominal Exam: Normal Bowel Sounds, Soft, Non-Tender, No Organomegaly, No Distention, No Abnormal Bruit, No Mass, Pelvis Stable (Female) Exam: Normal External Exam, Normal Speculum Exam, Normal Bimanual Exam Back Exam: Normal Inspection, Full Range of Motion Extremities: Normal Inspection, Normal Range of Motion, Non-Tender, No Pedal Edema, Normal Capillary Refill Skin: Warm, Dry, Intact Wound/Incisions: Healing Well Neurological: No New Focal Deficit Psy/Mental Status: Alert, Normal Affect, Normal Mood - Problem List & Annotations (1) Angioedema SNOMED Code(s): 78104548 Code(s): T78.3XXA - ANGIONEUROTIC EDEMA, INITIAL ENCOUNTER Status: Acute Current Visit: Yes Qualifiers: Encounter type: initial encounter Qualified Code(s): T78.3XXA - Angioneurotic edema, initial encounter (2) History of COPD SNOMED Code(s): 753235726 Code(s): Z87.09 - PERSONAL HISTORY OF OTHER DISEASES OF THE RESPIRATORY SYSTEM Status: Acute Current Visit: Yes - Problem List Review Problem List Initiated/Reviewed/Updated: Yes - My Orders Last 24 Hours: My Active Orders 02/28/19 01:18 Ambulate [RC] ASDIRECTED Vital Signs [RC] 04,08,12,16,20,00 DVT/VTE Prophylaxis Reflex [OM.PC] Routine Resuscitation Status Routine 02/28/19 01:19 Intake and Output [RC] QSHIFT Oxygen Therapy [RC] PRN Pulse Oximetry [RC] PRN 02/28/19 01:21 Antiembolic Devices [RC] .Routine VTE/DVT Education [RC] PER UNIT ROUTINE 02/28/19 03:38 Oxygen Therapy [RC] ASDIRECTED 02/28/19 08:31 diphenhydrAMINE [Benadryl] 25 mg PO Q6H PRN 02/28/19 09:00 OLANZapine [ZyPREXA] 10 mg PO DAILY 02/28/19 09:15 Acetaminophen [Tylenol] 650 mg PO BID PRN Albuterol [Proventil Neb Soln] 2.5 mg INH Q6HRRT PRN Ondansetron [Zofran ODT] 4 mg PO Q6H PRN 02/28/19 09:30 Fluticasone/Vilanterol 1 each IH DAILY 02/28/19 10:00 Sodium Chloride 1 gm PO BID 02/28/19 13:45 Metoprolol Tartrate [Lopressor] 50 mg PO BID 02/28/19 14:40 BASIC METABOLIC PANEL,BMP [CHEM] Routine MAGNESIUM [CHEM] Routine 02/28/19 21:00 OLANZapine [ZyPREXA] 20 mg PO BEDTIME atorvaSTATin [Lipitor] 20 mg PO BEDTIME 02/28/19 Breakfast Regular Diet [DIET] 03/01/19 09:00 Aspirin [Halfprin] 81 mg PO DAILY Cetirizine [ZyrTEC] 10 mg PO DAILY Estradiol [Estrace] 0.5 mg PO DAILY Fluticasone Propionate [Flonase] 0 gm NASBOTH DAILY Pantoprazole Sodium [Protonix] 20 mg PO DAILY - Plan Plan:: Angioedema due to ACEi use -Patient presented to the ED with swollen tongue -Patient on Lisinopril for HTN -She is hemodynamically stable -admit to medical floor -monitor vitals -monitor respiratory status closely -Benadryl 50 mg q6h -Low thresh hold for ICU transfer #Hyponatremia- moderate -This appears chronic -Patient asymptomatic -monitor serum Na -Sodium tablet tid #Hypomagnesemia -Repleted IV -recheck level #Hyperphosphatemia -repeat serum phos level #Leukopenia -follow up #COPD -Not in exacerbation -Continue home medication #HTN -BP witnin acceptable limits -Hold Lisinopril given angioedema -Monitor BP closely -Metoprolol 50 mg bid #HLD -Continue Lipitor #Diet -Cardiac #Code -Full
[2019-02-28 15:20] LABS: ANION GAP 13.1; CHLORIDE,CL 90 mmol/L (101-111); SODIUM,NA 123 mmol/L (135-145)
[2019-02-28] MEDS ORDERED: Magnesium Sulfate/D5W 2 GM in Premix Bag 1 BAG IV ONE (16:22)
[2019-02-28] MEDS ORDERED: Sodium Chloride 1 GM Tab PO ONE (16:30)
[2019-02-28] MEDS ORDERED: Magnesium Sulfate/Water 50 ML IV ONE (17:00)
[2019-02-28] MEDS: Albuterol 0.083% 2.5 MG/3 ML Neb Soln INH PRN (17:47)
[2019-02-28] MEDS: Sodium Chloride 1 GM Tab PO SCH (20:39)
[2019-02-28] MEDS ORDERED: atorvaSTATin 20 MG Tab PO SCH (21:00)
[2019-03-01] MEDS: Sodium Chloride 1 GM Tab PO SCH ×3 (08:09→20:55)
[2019-03-01] MEDS: OLANZapine 5 MG Tab PO SCH ×2 (08:09→20:54)
[2019-03-01] MEDS: Metoprolol Tartrate 50 MG Tab PO SCH ×2 (08:09→20:56)
[2019-03-01] MEDS ORDERED: Aspirin 81 MG Tab.EC PO SCH (09:00)
[2019-03-01] MEDS ORDERED: Non-Formulary Medication 1 Each (Pantoprazole Sodium [Protonix] 20 MG) PO SCH (09:00)
[2019-03-01] MEDS ORDERED: ESTRADIOL 0.5 MG PO SCH (09:00)
[2019-03-01] MEDS ORDERED: Fluticasone Propionate Nasal Spray 16 GM Bottle NASBOTH SCH (09:00)
--- NOTE | 2019-03-01 10:24 | PCM.DCSUM1 ---
Discharge Summary - Hospital Course Free Text/Narrative:: Elsa is 63 y/o F with PMH of HTN, HLD, COPD who was brought to the ED with swollen tongue. She was admitted for angioedema. Her symptoms improved. Patient feeling better. No complaint. No SOB. She is being discharged in stable condition. Lisinopril d/c. Patient advised to avoid all ACEi and ARBs. She will follow up with PCP. Diagnosis: Stroke: No - Discharge Data Discharge Date: 03/01/19 Discharge Disposition: Home, Self-Care 01 Condition: Good - Referral to Home Health Primary Care Physician: Azalea Parker MD - Discharge Diagnosis/Problem(s) (1) Angioedema SNOMED Code(s): 55050702 ICD Code: T78.3XXA - ANGIONEUROTIC EDEMA, INITIAL ENCOUNTER Status: Acute Current Visit: Yes Qualifiers: Encounter type: initial encounter Qualified Code(s): T78.3XXA - Angioneurotic edema, initial encounter (2) History of COPD SNOMED Code(s): 261578343 ICD Code: Z87.09 - PERSONAL HISTORY OF OTHER DISEASES OF THE RESPIRATORY SYSTEM Status: Acute Current Visit: Yes - Patient Instructions Diet: Heart Healthy Diet Activity: As Tolerated Driving: May Drive Today Showering/Bathing: May Shower Notify Provider of: Fever, Increased Pain, Swelling and Redness, Nausea and/or Vomiting - Discharge Plan *PRESCRIPTION DRUG MONITORING PROGRAM REVIEWED*: No *COPY OF PRESCRIPTION DRUG MONITORING REPORT IN PATIENT [place]EN[place]: No Prescriptions/Med Rec: Magnesium Oxide 400 mg PO TID #21 tablet Metoprolol Succinate 50 mg PO DAILY #30 tab.er.24h Sodium Chloride 1 gm PO TID 1 Days #90 tablet Home Medications: Home Meds Acetaminophen [Tylenol] 650 mg PO BID PRN 09/23/14 [History] Fluticasone Propionate [Flonase] 2 sprays NASBOTH DAILY 09/23/14 [History] OLANZapine [ZyPREXA] 20 mg PO BEDTIME 09/23/14 [History] Polyethylene Glycol 3350 [MiraLAX] 17 gm PO DAILY 09/23/14 [History] atorvaSTATin [Lipitor] 20 mg PO BEDTIME 06/23/15 [History] Estradiol [Estrace] 0.5 mg PO DAILY 03/28/16 [History] Methylcellulose [Citrucel] 15 ml PO DAILY 03/28/16 [History] Multivitamin with Minerals [Multiple Vitamin] 1 tab PO DAILY 03/29/16 [History] Sennosides/Docusate Sodium [Senna-S Tablet] 2 tab PO BID 09/08/17 [History] guaiFENesin/Dextromethorphan [Mucinex DM ER 1,200-60 MG] 1 tab PO BID 09/08/17 [ History] Aspirin [Halfprin] 81 mg PO DAILY 05/08/18 [History] Cetirizine [ZyrTEC] 10 mg PO DAILY 05/08/18 [History] Cholecalciferol (Vitamin D3) [Vitamin D3] 1,000 units PO DAILY 05/08/18 [History ] Ondansetron [Zofran] 4 mg PO Q6H PRN 05/08/18 [History] Pantoprazole Sodium [Protonix] 20 mg PO DAILY 05/08/18 [History] Albuterol Sulfate 2.5 mg IH Q6HR PRN 02/27/19 [History] Fluticasone/Vilanterol [Breo Ellipta 100-25 MCG Inhalation Kit] 1 each IH DAILY 02/27/19 [History] Hydrocortisone [Hydrocortisone 1% Crm] 28.4 gm TOP ASDIRECTED 02/27/19 [History] OLANZapine [Olanzapine] 10 mg PO DAILY 02/27/19 [History] diphenhydrAMINE [Benadryl] 50 mg PO Q6HR PRN 02/27/19 [History] Magnesium Oxide 400 mg PO TID #21 tablet 03/01/19 [Rx] Metoprolol Succinate 50 mg PO DAILY #30 tab.er.24h 03/01/19 [Rx] Sodium Chloride 1 gm PO TID 1 Days #90 tablet 03/01/19 [Rx] Forms: ED Department Discharge Referrals: PCP,None [Ordering Only Provider] - - Discharge Summary/Plan Comment DC Time >30 min.: Yes - General Info Date of Service: 03/01/19 Admission Dx/Problem (Free Text: Admission Diagnosis/Problem Admission Diagnosis/Problem Allergic reaction Subjective Update: Elsa is 63 y/o F with PMH of HTN, HLD, COPD who was brought to the ED with swollen tongue. She was admitted for angioedema. This morning she was seen and examined. Tongue swelling has resolved. patient feeling better. No complaint. No SOB. Functional Status: Reports: Pain Controlled - Review of Systems General: Reports: No Symptoms HEENT: Reports: No Symptoms Pulmonary: Reports: No Symptoms Cardiovascular: Reports: No Symptoms Gastrointestinal: Reports: No Symptoms Genitourinary: Reports: No Symptoms Musculoskeletal: Reports: No Symptoms Skin: Reports: No Symptoms Neurological: Reports: No Symptoms Psychiatric: Reports: No Symptoms - Patient Data Vitals - Most Recent: Last Vital Signs Temp 98.2 F 03/01/19 08:00 Pulse 62 03/01/19 08:09 Resp 16 03/01/19 08:00 BP 157/77 H 03/01/19 08:09 Pulse Ox 97 03/01/19 08:00 Weight - Most Recent: 192 lb I&O - Last 24 hours: Intake & Output 02/28/19 03/01/19 03/01/19 22:59 06:59 14:59 Intake Total 161 400 Balance 161 400 Lab Results - Last 24 hrs: Laboratory Results - last 24 hr 02/28/19 02/28/19 Range/Units 14:55 14:55 Sodium 123 L (135-145) mmol/L Potassium 4.1 (3.6-5.0) mmol/L Chloride 90 L (101-111) mmol/L Carbon Dioxide 24.0 (21.0-31.0) mmol/L Anion Gap 13.1 BUN 10 (7-18) mg/dL Creatinine 0.8 (0.6-1.3) mg/dL Est Cr Clr Drug Dosing 68.18 mL/min Estimated GFR (MDRD) > 60 Glucose 103 (74-105) mg/dL Calcium 8.3 L (8.4-10.2) mg/dl Phosphorus 4.0 (2.5-4.6) mg/dL Magnesium 1.7 L (1.8-2.5) mg/dL Med Orders - Current: Current Medications Acetaminophen (Tylenol) 650 mg PO BID PRN PRN Reason: Pain Albuterol (Proventil Neb Soln) 2.5 mg INH Q6HRRT PRN PRN Reason: Cough Last Admin: 02/28/19 17:47 Dose: 2.5 mg Aspirin (Halfprin) 81 mg PO DAILY J[facility] Last Admin: 03/01/19 08:09 Dose: 81 mg Atorvastatin Calcium (Lipitor) 20 mg PO BEDTIME [facility] Diphenhydramine HCl (Benadryl) 25 mg PO Q6H PRN PRN Reason: swelling Fluticasone Propionate (Flonase) 0 gm NASBOTH DAILY [facility] Metoprolol Tartrate (Lopressor) 50 mg PO BID [facility] Last Admin: 03/01/19 08:09 Dose: 50 mg Non-Formulary Medication (Cetirizine [Zyrtec]) 10 mg PO DAILY [facility] Non-Formulary Medication (Estradiol [Estrace]) 0.5 mg PO DAILY [facility] Non-Formulary Medication (Fluticasone/Vilanterol) 1 each IH DAILY [facility] Non-Formulary Medication (Pantoprazole Sodium [Protonix]) 20 mg PO DAILY [facility] Olanzapine (Zyprexa) 20 mg PO BEDTIME [facility] Last Admin: 02/28/19 20:38 Dose: 20 mg Olanzapine (Zyprexa) 10 mg PO DAILY [facility] Last Admin: 03/01/19 08:09 Dose: 10 mg Ondansetron HCl (Zofran Odt) 4 mg PO Q6H PRN PRN Reason: Nausea Sodium Chloride (Sodium Chloride) 1 gm PO TID [facility] Last Admin: 03/01/19 08:09 Dose: 1 gm Discontinued Medications Acetaminophen (Tylenol) 650 mg PO Q4H PRN PRN Reason: Pain (mild 1-3 )/fever Last Admin: 02/28/19 14:33 Dose: 650 mg Diphenhydramine HCl (Benadryl) 25 mg PO TID PRN PRN Reason: swelling Last Admin: 02/28/19 05:14 Dose: 25 mg Epinephrine HCl (Adrenalin) 0.3 mg SUBCUT ONETIME ONE Stop: 02/27/19 23:37 Last Admin: 02/27/19 23:43 Dose: 0.3 mg Famotidine (Pepcid) 20 mg IVPUSH ONETIME ONE Stop: 02/28/19 00:04 Last Admin: 02/28/19 00:09 Dose: 20 mg Sodium Chloride (Normal Saline) 1,000 mls @ 100 mls/hr IV ASDIRECTED [facility] Last Infusion: 02/28/19 13:00 Dose: 100 mls/hr Magnesium Sulfate 2 gm/ Premix 50 mls @ 25 mls/hr IV ONETIME ONE Stop: 02/28/19 11:59 Last Infusion: 02/28/19 11:54 Dose: 25 mls/hr Magnesium Sulfate/Dextrose 1 (gm/ Premix) 100 mls @ 100 mls/hr IV ONETIME ONE Stop: 02/28/19 17:18 Last Admin: 02/28/19 16:27 Dose: Not Given Magnesium Sulfate/Dextrose 2 (gm/ Premix) 200 mls @ 100 mls/hr IV ONETIME ONE Stop: 02/28/19 18:21 Last Admin: 02/28/19 16:58 Dose: 100 mls/hr Magnesium Sulfate (Magnesium Sulfate In Water Premix) 50 mls @ 25 mls/hr IV ONETIME ONE Stop: 02/28/19 18:59 Last Infusion: 02/28/19 19:09 Dose: Infused Influenza Virus Vaccine (Pharmacy To Dose - Influenza Vaccine) 1 each IM ONETIME ONE Stop: 02/28/19 08:34 Influenza Virus Vaccine (Fluad [id number] Syringe) 45 mcg IM .ONCE ONE Stop: 02/28/19 11:01 Last Admin: 02/28/19 10:15 Dose: 45 mcg Magnesium Sulfate (Magnesium Sulfate 50%) 1 gm IM ONETIME ONE Stop: 02/28/19 09:38 Last Admin: 02/28/19 13:40 Dose: Not Given Methylprednisolone Sodium Succinate (Solu-Medrol) 125 mg IVPUSH ONETIME ONE Stop: 02/27/19 23:33 Last Admin: 02/27/19 23:40 Dose: 125 mg Ondansetron HCl (Zofran) 4 mg IV ONETIME ONE Stop: 02/28/19 00:13 Last Admin: 02/28/19 00:13 Dose: 4 mg Ondansetron HCl (Zofran) Confirm Administered Dose 4 mg .ROUTE .STK-MED ONE Stop: 02/28/19 00:13 Last Admin: 02/28/19 00:31 Dose: Not Given Sodium Chloride (Sodium Chloride) 1 gm PO BID J[facility] Last Admin: 02/28/19 11:24 Dose: 1 gm Sodium Chloride (Sodium Chloride) 1 gm PO ONETIME ONE Stop: 02/28/19 16:31 Last Admin: 02/28/19 16:39 Dose: 1 gm - Exam General: Reports: Alert, Oriented HEENT: Reports: Pupils Equal, Pupils Reactive, EOMI, Mucous Membr. Moist/[place]: Reports: Supple Lungs: Reports: Clear to Auscultation, Normal Respiratory Effort Cardiovascular: Reports: Regular Rate, Regular Rhythm GI/Abdominal Exam: Normal Bowel Sounds, Soft, Non-Tender, No Organomegaly, No Distention, No Abnormal Bruit, No Mass, Pelvis Stable (Female) Exam: Normal External Exam, Normal Speculum Exam, Normal Bimanual Exam Rectal (Female) Exam: Normal Exam, Normal Rectal Tone Back Exam: Reports: Normal Inspection, Full Range of Motion Extremities: Normal Inspection, Normal Range of Motion, Non-Tender, No Pedal Edema, Normal Capillary Refill Skin: Reports: Warm, Dry, Intact Wound/Incisions: Reports: Healing Well Neurological: Reports: No New Focal Deficit Psy/Mental Status: Reports: Alert, Normal Affect, Normal Mood
[2019-03-01 11:00] LABS: ANION GAP 12.7; CHLORIDE,CL 89 mmol/L (101-111); SODIUM,NA 122 mmol/L (135-145)
[2019-03-01] MEDS: Albuterol 0.083% 2.5 MG/3 ML Neb Soln INH PRN (14:56)
[2019-03-01 20:19] VITALS: BP 181/91; PULSE 59
[2019-03-01] MEDS ORDERED: Metoprolol Succinate 50 MG Tab.ER PO ONE (23:01)
== END 2019-03-01 23:02 | disposition home or self-care (01) ==
LOC: DL.ED 23:26 → DL.MS 02-28 01:02
PROVIDERS: ADMIT Student in an Organized Health Care Education/Training Program; ATTEND Student in an Organized Health Care Education/Training Program
DX: T46.4X5A Adverse effect of angiotensin-converting-enzyme inhibitors, initial encounter (principal); T78.3XXA Angioneurotic edema, initial encounter; J44.9 Chronic obstructive pulmonary disease, unspecified; I25.10 Atherosclerotic heart disease of native coronary artery without angina pectoris; E78.5 Hyperlipidemia, unspecified; I11.0 Hypertensive heart disease with heart failure; I50.9 Heart failure, unspecified; E78.00 Pure hypercholesterolemia, unspecified; J45.909 Unspecified asthma, uncomplicated; K21.9 Gastro-esophageal reflux disease without esophagitis; M19.90 Unspecified osteoarthritis, unspecified site; G43.909 Migraine, unspecified, not intractable, without status migrainosus; E66.9 Obesity, unspecified; E87.1 Hypo-osmolality and hyponatremia; E83.42 Hypomagnesemia; E83.39 Other disorders of phosphorus metabolism; D72.819 Decreased white blood cell count, unspecified; F17.210 Nicotine dependence, cigarettes, uncomplicated; Z79.899 Other long term (current) drug therapy; Z79.82 Long term (current) use of aspirin; Z88.8 Allergy status to other drugs, medicaments and biological substances; Z88.5 Allergy status to narcotic agent; Z88.1 Allergy status to other antibiotic agents; Z91.018 Allergy to other foods
CPT/HCPCS: 36415; 80048; 80053; 83735; 84100; 85025; 94640; 96372; 96374; 96375; 99285; A9270; G0008; J0171; J2405; J2930; J3475; J3490; J7030; 90653; 96361; 96365; 96366; G0378; J7613-GY